=== PATIENT | female | born 1995 | race Caucasian/White ===

== ENCOUNTER 2022-09-21 13:36 | Outpatient (CLI) | payer OTHER, SELFPAY ==
[2022-09-21 14:09] LABS: Albumin* 4.9 g/dL (3.3-5.0); Chloride* 103 mmol/L (96-114); Potassium* 4.2 mmol/L (3.6-5.1); Sodium* 139 mmol/L (135-149)
[2022-09-21 14:11] LABS: Cholesterol* 160 mg/dL (90-199); Creatinine* 0.8 mg/dL (0.5-1.5); Estimated Glomerular Filt Rate 103 ml/min
[2022-09-21 14:12] LABS: Alanine Aminotransferase* 14 U/L (4-35); Alkaline Phosphatase* 104 U/L (40-150); Aspartate Amino Transferase* 24 U/L (12-35); Bilirubin Total* 0.8 mg/dL (0.1-1.5); Blood Urea Nitrogen* 8 mg/dL (5-24); Carbon Dioxide* 21 mmol/L (20-32); Glucose* 85 mg/dL (60-115); Total Protein* 7.5 g/dL (6.0-8.3); Triglycerides* 91 mg/dL (40-149)
[2022-09-21 14:13] LABS: Calcium* 9.6 mg/dL (8.4-10.6); HDL Cholesterol* 76 mg/dL (>=50); LDL Cholesterol Calculated 66 mg/dL (<100)
[2022-09-21 14:44] LABS: TSH With Reflex to FT4* 0.966 uIU/mL (0.270-4.200)
== END 2022-09-21 13:37 | disposition home or self-care (01) ==
PROVIDERS: PCP Physician Assistant Medical; Visit Provider Physician Assistant Medical
DX: Z01.419 Encounter for gynecological examination (general) (routine) without abnormal findings (principal); R42 Dizziness and giddiness; D64.9 Anemia, unspecified; Z13.6 Encounter for screening for cardiovascular disorders; Z13.29 Encounter for screening for other suspected endocrine disorder
CPT/HCPCS: 80053; 80061; 83516; 84443